=== PATIENT | male | born 1970 | race Asian ===

== ENCOUNTER 2024-02-18 11:01 | Observation (INO) | payer OTHER ==
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
[2024-02-18] MEDS: SODIUM CHLORIDE 0.9% 1,000 ML IV STA (12:08)
[2024-02-18] MEDS: METOCLOPRAMIDE 5 MG/ML 2 ML VIAL IVP STA (12:08)
[2024-02-18 12:10] LABS: Basophils % (A) 0 %; Eosinophils % (A) 1 %; HCT 42.5 % (39.0-53.0); Lymphocytes # (A) 1.1 k/uL (1.0-4.8); Lymphocytes % (A) 20 %; MCH 29.2 pg (25.0-35.0); MCHC 33.1 g/dL (31.0-37.0); MCV 88.2 fL (80.0-100.0); Mean Platelet Volume 6.8; Monocytes # (A) 0.2 k/uL (0-1.0); Monocytes % (A) 4 %; Neutrophils % (A) 73 %; Platelet Count 364 k/uL (150-450); RBC 4.81 m/uL (4.30-5.90); RDW 12.6 % (11.5-15.5); WBC 5.5 k/uL (3.8-10.6)
[2024-02-18] MEDS: KETOROLAC 15 MG/ML 1 ML VIAL IVP STA ×2 (12:11→14:25)
[2024-02-18] MEDS: diphenhydrAMINE 50 MG/ML 1 ML VIAL IVP STA (12:13)
[2024-02-18] MEDS: MECLIZINE 12.5 MG TAB PO STA ×2 (12:17→14:26)
[2024-02-18 12:20] LABS: ALT 21 U/L (4-49); AST 20 U/L (17-59); African American GFR (CKD) >90 (>60 ml/min/1.73 sqM); Albumin 4.3 g/dL (3.5-5.0); Alkaline Phosphatase 60 U/L (38-126); Anion Gap 4 mmol/L; Blood Urea Nitrogen 12 mg/dL (9-20); Carbon Dioxide 26 mmol/L (22-30); Chloride 109 mmol/L (98-107); Glucose 112 mg/dL (74-99); Non-African American GFR(CKD) >90 (>60 ml/min/1.73 sqM); Potassium 3.6 mmol/L (3.5-5.1); Sodium 139 mmol/L (137-145); Total Bilirubin 1.3 mg/dL (0.2-1.3); Total Protein 7.9 g/dL (6.3-8.2)
[2024-02-18 12:48] LABS: Glucose,Whole Blood 92 mg/dL (70-110)
--- NOTE | 2024-02-18 12:53 | CT ---
EXAMINATION TYPE: CT brain wo con CT DLP: 1204.4 mGycm, Automated exposure control for dose reduction was used. DATE OF EXAM: 02/18/2024 12:34 PM COMPARISON: None. CLINICAL INDICATION:Male, 53 years old with history of Headache with severe dizziness and visual troy ges, DIZZINESS, WEAKNESS AND AMS TECHNIQUE: Brain: Multiple axial CT images of the brain were obtained without IV contrast. . Coronal and sagitta l reformats reviewed. FINDINGS: Brain: Extra-axial spaces: No abnormal extra-axial fluid collections. Ventricular system: Within normal limits Cerebral parenchyma: No acute intraparenchymal hemorrhage or mass effect. The linares-white junction is well differentiated. Cerebellum: Unremarkable. Mass effect: No evidence of midline shift. Intracranial vasculature: unremarkable Soft tissues: Normal. Calvarium/osseous structures: No depressed skull fracture. Paranasal sinuses and mastoid air cells: Clear Visualized orbits: Orbital contents are intact. IMPRESSION: No acute intracranial process. [facility], , 02/18/2024 12:51 PM
[2024-02-18] MEDS: ONDANSETRON 4 MG/2 ML VIAL IVP STA (14:22)
--- NOTE | 2024-02-18 16:37 | CT ---
EXAMINATION TYPE: CODE STROKE: CTA head neck DATE OF EXAM: 02/18/2024 HISTORY: Severe headache, dizziness COMPARISON: None CT DLP: 503.9 mGycm. Automated Exposure Control for Dose Reduction was Utilized. TECHNIQUE: CTA scan of the head and neck is performed with IV Contrast, patient injected with 65ml m L of Isovue 370, axial images are obtained, coronal and sagittal reformatted images are reviewed. 3D reconstructed images are created on an independent workstation and reviewed. FINDINGS: The brachiocephalic origins are widely patent and no significant stenosis. There is no significant stenosis of the common or internal carotid arteries within the neck. There is no stenosis of the vertebral arteries. Intracranially, there is no stenosis, segmental occlusion, sizable aneurysm sac or vascular malformat ion. IMPRESSION:. No significant abnormality seen. NASCET criteria was used in interpretation of this exam? [facility], Workstation: [id number] 02/18/2024 4:34 PM
[2024-02-18] MEDS ORDERED: NALOXONE 0.4 MG/ML 1 ML VIAL IV PRN (17:35)
[2024-02-19] MEDS ORDERED: ONDANSETRON 4 MG/2 ML VIAL IVP PRN (05:20)
[2024-02-19] MEDS: KETOROLAC 15 MG/ML 1 ML VIAL IVP PRN (11:08)
[2024-02-19] MEDS: diazePAM 5 MG TAB PO SCH (17:52)
[2024-02-20] MEDS: amLODIPine 5 MG TAB PO SCH (09:02)
--- NOTE | 2024-02-20 13:39 | XR ---
EXAMINATION TYPE: XR chest 2V DATE OF EXAM: 02/20/2024 COMPARISON: NONE TECHNIQUE: PA and lateral views submitted. HISTORY: Hypertension FINDINGS: The lungs are clear and there is no pneumothorax, pleural effusion, or focal pneumonia. Heart size normal and no overt failure. Osseous structures demonstrate hypertrophic and degenerative changes of the spine. A nodular density in the right mid lung recommend short-term follow-up CT chest. Biapical pleural thickening. IMPRESSION: 1. No acute process. 2. There is a 1 cm nodular density in the right midlung. Recommend short-term follow-up CT chest. [facility], , 02/20/2024 1:37 PM
[2024-02-20] MEDS: MECLIZINE 25 MG TAB PO PRN (17:02)
--- NOTE | 2024-02-21 01:43 | PN ---
PROGRESS NOTE SUBJECTIVE: A 53-year-old I believe a white male, remains on hypertension medicines. We gave him Valium for dizziness, which worked in the emergency room for possible vertigo symptoms. Awaiting Neurology recommendations. Some of these could be due to his blood pressure being high. It is high on admission. OBJECTIVE: VITAL SIGNS: Temp 98.1, pulse 70s to 80s, respiratory rate 16 to 18, blood pressure 140s to 130s over 80s, O2 is 98% to 99% on room air. LABORATORY DATA: Labs essentially are normal. ASSESSMENT: Wait for further orders from the consults who are involved. Dr. Del Cid for leukocytosis. Possibly go home on Valium if his vertigo has improved and his blood pressure has improved. He had an angiography CT, which shows no stenosis, no abnormalities at all. Brain CT is normal. EKG, right ventricular conduction delay. Possibly send him home on vertigo medications and hypertension meds if he is stabilized. Prognosis guarded. MMODL / IJN: [id number] /
[2024-02-21 08:41] LABS: Basophils # (A) 0.03 X 10*3/uL (0.00-0.10); Basophils % (A) 0.5 %; Eosinophils # (A) 0.13 X 10*3/uL (0.04-0.35); Eosinophils % (A) 2.2 %; HCT 41.5 % (39.6-50.0); Lymphocytes # (A) 1.63 X 10*3/uL (0.90-5.00); Lymphocytes % (A) 27.8 %; MCH 29.3 pg (27.0-32.0); MCHC 33.7 g/dL (32.0-37.0); MCV 86.8 FL (80.0-97.0); Mean Platelet Volume 9.3 FL (9.5-12.2); Monocytes # (A) 0.48 X 10*3/uL (0.20-1.00); Monocytes % (A) 8.2 %; NRBC Per 100 WBC 0 X 10*3/uL (0.00-0.01); Neutrophils # (A) 3.59 X 10*3/uL (1.80-7.70); Neutrophils % (A) 61.1 %; Platelet Count 329 X 10*3/uL (140-440); RBC 4.78 X 10*6/uL (4.40-5.60); RDW 12.3 % (11.5-14.5); WBC 5.87 X 10*3/uL (4.50-10.00)
--- NOTE | 2024-02-21 08:46 | P.CONS ---
History of Present Illness - Reason for Consult Consult date: 02/20/24 Viral syndrome Requesting physician: Nasim Phillips - Chief Complaint Dizziness and vomiting x 2 days - History of Present Illness Patient is a 53-year-old male past medical history significant for depression deaf has been brought into the hospital concerning for dizziness and sensation of room spinning x 2 days apparently patient was complaining of a headache nausea vomiting difficulty focusing and generalized not feeling well and apparently the patient did have worsening of symptoms when he was at work around 9 AM for the patient has been brought into the hospital on arrival to the ER patient was afebrile and no fever have been recorded subsequently patient was not tachycardic hypotensive or hypoxic patient did have a normal white count of 5.5 creatinine has been normal electrolytes are normal liver enzymes are normal patient did have a CT of the brain no acute intracranial process patient did have a angiographic CT no significant normality seen patient has been admitted to the hospital consult placed for infectious disease concerning for viral syndrome that is very hard to get a history because of language barrier though when asked denies having any pain to the ear area or any drainage from the ear since admission to the hospital has reported by the nursing staff the patient seem to be doing well and no further episode of vomiting has been reported Review of Systems Positive point and negatives has been mentioned in the HPI, complete review of systems was performed and all other systems are negative Past Medical History Past Medical History: No Reported History History of Any Multi-Drug Resistant Organisms: None Reported Additional Past Surgical History / Comment(s): left knee replacement Past Anesthesia/Blood Transfusion Reactions: No Reported Reaction Past Psychological History: Depression Additional Psychological History / Comment(s): in the past not current Smoking Status: Never smoker Past Alcohol Use History: None Reported Past Drug Use History: None Reported Medications and Allergies Home Medications Medication Instructions Recorded Confirmed Type No Known Home Medications 02/18/24 02/18/24 History Allergies Allergy/AdvReac Type Severity Reaction Status Date / Time No Known Allergies Allergy Verified 02/18/24 17:17 Physical Exam Vitals: Vital Signs Temp Pulse Pulse Resp BP Pulse Ox 02/20/24 07:18 98.1 F 61 16 148/83 99 02/20/24 01:38 97.6 F 68 16 130/85 98 02/19/24 18:54 98.3 F 71 16 133/73 96 02/19/24 17:54 69 147/84 02/19/24 12:14 98.3 F 61 15 137/87 100 Intake and Output 02/19/24 02/20/24 02/20/24 22:59 06:59 14:59 Intake Total 420 Output Total 300 Balance -300 420 Intake: Oral 420 Output: Urine 300 Other: Voiding Method Urinal GENERAL DESCRIPTION: Middle-aged male lying in bed, no distress. No tachypnea or accessory muscle of respiration use. HEENT: Shows Pallor , no scleral icterus. Oral mucous membrane is dry. No pharyngeal erythema or thrush NECK: Trachea central, no thyromegaly. LUNGS: Unlabored breathing. Clear to auscultation anteriorly. No wheeze or crack le. HEART: S1, S2, regular rate and rhythm. No loud murmur ABDOMEN: Soft, no tenderness , guarding or rigidity, no organomegaly EXTREMITIES: No edema of feet. SKIN: No rash, no masses palpable. NEUROLOGICAL: The patient is awake, alert, mood and affect normal. Results CBC & Chem 7: 02/21/24 06:10 02/18/24 12:04 Assessment and Plan (1) Dizziness Current Visit: Yes Status: Acute Code(s): R42 - DIZZINESS AND GIDDINESS SNOMED Code(s): 416638134 (2) Headache Current Visit: Yes Status: Acute Code(s): R51.9 - HEADACHE, UNSPECIFIED SNOMED Code(s): 45996642 Plan: 1patient presented to hospital with dizziness headache and did have episode of vomiting questionably related to the middle ear issues clinically would doubt an infectious etiology as the patient not running any fever does not look toxic did have a normal white count 2patient benefit from ENT evaluation for more detailed examination of the ear and specific testing for labyrinthitis 3we will check his inflammatory markers 4no need for antibiotics or antiviral at this point We will follow on clinical condition and cultures to further adjust medication if needed Thank you for this consultation we will follow the patient along with you Dictation was produced using [employer] dictation software. please excuse any grammatical, word or spelling errors. Time with Patient: Greater than 30
[2024-02-21 09:19] LABS: ALT 15 U/L (10-49); AST 17 U/L (14-35); Albumin 3.8 g/dL (3.8-4.9); Albumin/Globulin Ratio 1.12 Ratio (1.60-3.17); Alkaline Phosphatase 65 U/L (41-126); Blood Urea Nitrogen 14.4 mg/dL (9.0-27.0); C Reactive Protein <0.30 mg/dL (0.00-0.80); Calcium 9.4 mg/dL (8.7-10.3); Carbon Dioxide 25.3 mmol/L (21.6-31.8); Chloride 106 mmol/L (96-109); Globulin 3.4 g/dL (1.6-3.3); Glucose 95 mg/dL (70-110); Potassium 3.6 mmol/L (3.5-5.5); Sodium 140 mmol/L (135-145); Total Protein 7.2 g/dL (6.2-8.2)
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
--- NOTE | 2024-02-21 16:00 | P.PN ---
Subjective Progress Note Date: 02/21/24 Principal diagnosis: Reason for follow-up is dizziness question of viral syndrome Patient is a 53-year-old male past medical history significant for depression deaf has been brought into the hospital concerning for dizziness and sensation of room spinning x 2 days before presenting to the hospital ID consult concern for possible viral syndrome. On today's evaluation that is 02/21/2024, Patient is afebrile this morning patient has been breathing comfortably still some dizziness no vomiting diarrhea or any other changes reported by the nursing staff. Patient white count is 5.87 creatinine 0.9 procalcitonin 0.03 CRP is less than 0.30 Objective - Vital Signs Vital signs: Vital Signs Temp 98.0 F 02/21/24 12:50 Pulse 67 02/21/24 12:50 Resp 14 02/21/24 12:50 BP 129/87 02/21/24 12:50 Pulse Ox 97 02/21/24 12:50 FiO2 Intake & Output 02/20/24 02/21/24 02/21/24 18:59 06:59 18:59 Output Total 700 Balance -700 Output: Urine 700 Other: Voiding Method Urinal Urinal Urinal # Voids 1 1 - Exam GENERAL DESCRIPTION: Middle-age male lying in bed in no distress RESPIRATORY SYSTEM: Unlabored breathing , decreased breath sounds at bases HEART: S1 S2 regular rate and rhythm , ABDOMEN: Soft , no tenderness EXTREMITIES: No edema feet - Labs CBC & Chem 7: 02/21/24 06:10 02/21/24 06:10 Labs: Abnormal Lab Results - Last 24 Hours (Table) 02/21/24 02/21/24 Range/Units 06:10 06:10 MPV 9.3 L (9.5-12.2) FL Globulin 3.4 H (1.6-3.3) g/dL Albumin/Globulin Ratio 1.12 L (1.60-3.17) Ratio Assessment and Plan (1) Dizziness Current Visit: Yes Status: Acute Code(s): R42 - DIZZINESS AND GIDDINESS SNOMED Code(s): 293474678 (2) Headache Current Visit: Yes Status: Acute Code(s): R51.9 - HEADACHE, UNSPECIFIED SNOMED Code(s): 30062277 Plan: 1patient presented to hospital with dizziness headache and did have episode of vomiting questionably related to the middle ear issues clinically would doubt an infectious etiology as the patient not running any fever does not look toxic did have a normal white count 2patient benefit from ENT evaluation for more detailed examination of the ear and specific testing for labyrinthitis/Mnire's disease 3patient did have normal inflammatory markers that would make infectious etio logy less likely recommended discontinue Rocephin neurology recommending steroids Dictation was produced using [employer] dictation software. please excuse any grammatical, word or spelling errors.
[2024-02-21] MEDS: methylPREDNISolone SOD SUCCI 40 MG/ML 1 ML VIAL IV SCH (16:18)
--- NOTE | 2024-02-21 16:50 | MR ---
EXAMINATION TYPE: MR iac wo/w con DATE OF EXAM: 02/21/2024 2:47 PM CLINICAL INDICATION: Male, 53 years old with history of Chronic recurrent vertigo;, Chronic recurrent vertigo COMPARISON: 02/18/2024 TECHNIQUE: Multi planar, multi sequence imaging was performed through the brain. Specialized thin s equences were obtained through the internal auditory canals. Pre-and post gadolinium sequences were obtained. MR contrast: IV Contrast: 7.5 cc Gadavist FINDINGS: The linares-white junctions, ventricular system, and cisterns appear unremarkable.. Midline structures show no abnormality. Diffusion-weighted imaging shows no evidence of restricted diffusion. The suscep tibility weighted images do not reveal any evidence for micro-hemorrhage. The bone marrow signal is within normal limits. Paranasal sinuses and mastoid air cells: Mild scattered paranasal sinus disease. Visualized orbits: Orbital contents are intact. After administration of gadolinium, no abnormal enhancement is seen. The internal auditory canal sequences demonstrate no significant irregularity. The 7th cranial nerve s, 8 cranial nerves, and cerebellar pontine angles appear unremarkable. After the administration ju olinium, no abnormal enhancement is seen within the internal auditory canals. Vascular loop: None. IMPRESSION: 1. No evidence of intracranial mass nor acute/subacute CVA. 2. No evidence of internal auditory canal abnormality. [facility], , 02/21/2024 4:48 PM
[2024-02-21] MEDS: FOLIC ACID 1 MG TAB PO SCH (17:38)
[2024-02-21] MEDS: hydroCHLOROthiazide 12.5 MG CAP PO SCH (17:39)
[2024-02-21] MEDS: CYANOCOBALAMIN 1,000 MCG/ML 1 ML VIAL IM ONE (17:39)
--- NOTE | 2024-02-22 03:58 | PN ---
PROGRESS NOTE SUBJECTIVE: A 53-year-old [place] man with otitis media, vertigo improved with Valium and antibiotics. MRI is negative. He is sitting comfortably in bed. frontal headache. OBJECTIVE: CARDIOVASCULAR: S1 and S2. LUNGS: Clear. Unable to speak Chinese. ASSESSMENT: Recalcitrant dizziness, right otitis media, vertigo. MRI is negative. CTA of the neck and head is negative. Possible discharge home in the morning. MMODL / IJN: [id number] /
[2024-02-22] MEDS: CYANOCOBALAMIN 500 MCG TAB PO SCH (09:09)
--- NOTE | 2024-02-22 11:43 | P.PN ---
Subjective Progress Note Date: 02/21/24 Patient was seen for a follow-up. data integration developer was used over the screen, #[id number]. Patient states His symptoms have improved, about 4/10. Patient mentions that he was seen by ENT specialist long time ago, and was told that he has imbalance in the water in the ear and he believes it is the right ear. He still feels woozy, but overall symptoms have improved. He still is emotional, crying. Meclizine is helping slightly. Objective - Vital Signs Vital signs: Vital Signs Temp 97.6 F 02/22/24 07:41 Pulse 87 02/22/24 07:41 Resp 20 02/22/24 07:41 BP 104/68 02/22/24 07:41 Pulse Ox 92 L 02/22/24 07:41 FiO2 Intake & Output 02/21/24 02/22/24 02/22/24 18:59 06:59 18:59 Intake Total 540 200 Output Total 700 Balance -160 200 Intake: Intake, IV Titration 0 Amount cefTRIAXone 1 gm In 0 Sodium Chloride 0.9% 50 ml @ 100 mls/hr IVPB Q24HR [facility] Rx#:[id number] Oral 540 200 Output: Urine 700 Other: Voiding Method Urinal Urinal Urinal # Voids 1 1 - Exam Change. Mentation normal. - Labs CBC & Chem 7: 02/21/24 06:10 02/21/24 06:10 Assessment and Plan Assessment: * Chronic, recurrent episodes of vertigo. Patient has history of vertigo since age 16, that occurs every 3 to 6 months, lasting for 1-1/2 weeks. He was symptom free for 6 years, but now symptoms have relapsed since 02/17/2024. Suspect peripheral vestibular dysfunction resulting in recurrent episodes of vertigo. Rule out Mnire's disease. * Hearing impaired since age 4, uses sign language Plan: * MRI of the internal auditory canal with and without contrast showed no evidence of intracranial mass or acute/subacute CVA. No evidence of internal auditory canal abnormality. I personally reviewed MRI agree with the findings. * B12 399, folate 7.0, TSH 1.21, RPR nonreactive. Patient's B12 and folate are borderline we will start replacement. Patient given vitamin B12 injection 1000 mcg x 1, followed by 1000 mcg orally daily and folic acid 1 mg. * Meclizine, as needed for vertigo. * Start HCTZ 12.5 mg once daily for peripheral vascular dysfunction. Recommend low-salt diet. * Continue Zofran as needed for nausea vomiting. * Patient definitely needs ENT consultation to evaluate for peripheral vestibular dysfunction. However ENT recommending patient to follow-up in their office as outpatient. * Patient started on Solu-Medrol 40 mg IV every 8 hours, agree. * Neurologically clear, if the symptoms improved with above plans. Patient to follow-up with ENT outpatient.
[2024-02-22 13:31] VITALS: BP 145/90; PULSE 108; RESP 16; TEMP 98.7
--- NOTE | 2024-02-23 13:16 | P.PN ---
Subjective Progress Note Date: 02/22/24 Patient was seen for a follow-up. healthcare interpreter was used over the screen. Patient states his headache has gone away. His dizziness is about 2- 4/10. Overall improved. Patient appears depressed, frequently becomes emotional. Patient mentions that he was seen by ENT specialist long time ago, and was told that he has imbalance in the water in the ear and he believes it is the right ear. He still feels woozy, but overall symptoms have improved. He still is emotional, crying. Meclizine is helping slightly. Objective - Vital Signs Vital signs: Vital Signs Temp 98.7 F 02/22/24 13:29 Pulse 108 H 02/22/24 13:29 Resp 16 02/22/24 13:29 BP 145/90 02/22/24 13:29 Pulse Ox 95 02/22/24 13:29 FiO2 Intake & Output 02/22/24 02/23/24 02/23/24 18:59 06:59 18:59 Other: Voiding Method Urinal # Voids 1 - Exam Change. Mentation normal. - Labs CBC & Chem 7: 02/21/24 06:10 02/21/24 06:10 Assessment and Plan Assessment: * Chronic, recurrent episodes of vertigo. Patient has history of vertigo since age 16, that occurs every 3 to 6 months, lasting for 1-1/2 weeks. He was symptom free for 6 years, but now symptoms have relapsed since 02/17/2024. Suspect peripheral vestibular dysfunction resulting in recurrent episodes of vertigo. Rule out Mnire's disease. * Hearing impaired since age 4, uses sign language Plan: * MRI of the internal auditory canal with and without contrast showed no evidence of intracranial mass or acute/subacute CVA. No evidence of internal auditory canal abnormality. I personally reviewed MRI agree with the findings. * B12 399, folate 7.0, TSH 1.21, RPR nonreactive. Patient's B12 and folate are borderline we will start replacement. Patient given vitamin B12 injection 1000 mcg x 1, followed by 1000 mcg orally daily and folic acid 1 mg. * Meclizine, as needed for vertigo. * Start HCTZ 12.5 mg once daily for peripheral vascular dysfunction. Recommend low-salt diet. * Continue Zofran as needed for nausea vomiting. * Patient definitely needs ENT consultation to evaluate for peripheral vesti bular dysfunction. However ENT recommending patient to follow-up in their office as outpatient. * Patient started on Solu-Medrol 40 mg IV every 8 hours, agree. * Neurologically clear for discharge. Patient to follow-up with ENT outpatient.
--- NOTE | 2024-02-26 20:31 | P.DS ---
Providers Date of admission: 02/18/24 17:37 Attending physician: Nasim Phillips Consults: 02/19/24 16:33 Consult Physician Routine Consulting Provider: Britney Del Cid Consult Reason/Comments: viral syndrome Do you want consulting provider notified?: Yes 02/20/24 11:20 Consult Physician Routine Consulting Provider: Juan Guerra Consult Reason/Comments: Vertigo Do you want consulting provider notified?: Yes 02/20/24 11:23 Consult Physician Routine Consulting Provider: Mer Mart Consult Reason/Comments: dizziness Do you want consulting provider notified?: Yes Primary care physician: Stated None Hospital Course: Final Diagnosis History of depression Deaf Vertigo rule out labyrinthitis ENT follow-up on discharge Hypertension Discharge Disposition Patient stable for discharge home he is advised to not drive until dizziness has resolved he is to continue a low-salt diet follow-up with ear nose and throat doctor on discharge. Patient will continue on the Antivert meclizine as needed 3 times a day for dizziness as well as oral prednisone. Patient is hydrochlorothiazide amlodipine for blood pressure control. Hospital Course This is a 53-year-old male comes in for dizziness and vertigo type symptoms. Patient was feeling headache nausea vomiting difficulty focusing and room spinning. He is deaf and uses sign language which all communication was used via press operator assistant foreign language instructor over the screen. He has a significant other at the bedside. Apparently this has happened in the past. Concern for middle ear infection. The patient white blood cell count has remained normal and he has not having any fever. Patient was started on Valium as well as meclizine. Patient had a CT angiography which shows no stenosis no abnormalities at all his brain CT has been normal. EKG reveals a right ventricular conduction delay. He had an MRI orbit which reveals no evidence of intracranial mass or acute subacute CVA there is no evidence of internal auditory canal abnormality bilaterally. He did seem to respond to steroids as well as the meclizine and we will continue these on discharge until patient can get into see ENT in the office. Please see medication reconciliation for a list of current medications. Thank you for allowing us to participate in the care of this patient. The impression and plan of care has been dictated by Yamini Pinzon, Nurse Practitioner as directed. Dr. Roshan MD I have performed a history and physical examination and medical decision making of this patient, discussed the same with the dictator, and agree with the dictators assessment and plan as written, documented as a scribe. Based on total visit time, I have performed more than 50% of this visit. Patient Condition at Discharge: Fair Plan - Discharge Summary Discharge Rx Participant: No New Discharge Prescriptions: New Folic Acid 1 mg PO DAILY #30 tab hydroCHLOROthiazide [Hydrodiuril] 12.5 mg PO DAILY #30 cap Cyanocobalamin [Vitamin B-12] 1,000 mcg PO DAILY #30 tab Meclizine [Antivert] 25 mg PO TID PRN #30 tab PRN Reason: Vertigo amLODIPine [Norvasc] 5 mg PO DAILY #30 tab predniSONE 0 mg PO DIRECTED 12 Days #30 tab Pantoprazole [Protonix] 40 mg PO DAILY #30 tab Discharge Medication List Cyanocobalamin [Vitamin B-12] 1,000 mcg PO DAILY #30 tab 02/22/24 [Rx] Folic Acid 1 mg PO DAILY #30 tab 02/22/24 [Rx] Meclizine [Antivert] 25 mg PO TID PRN #30 tab 02/22/24 [Rx] Pantoprazole [Protonix] 40 mg PO DAILY #30 tab 02/22/24 [Rx] amLODIPine [Norvasc] 5 mg PO DAILY #30 tab 02/22/24 [Rx] hydroCHLOROthiazide [Hydrodiuril] 12.5 mg PO DAILY #30 cap 02/22/24 [Rx] predniSONE 0 mg PO DIRECTED 12 Days #30 tab 02/22/24 [Rx] Follow up Appointment(s)/Referral(s): [facility] [NON-STAFF] - 1-2 Days (please call and schedule appointment-office is closed) Juan Guerra MD [STAFF PHYSICIAN] - 1 Week (Ear nose throat specialist please call and make appointment-office is closed) Patient Instructions/Handouts: Hydrochlorothiazide (By mouth), Prednisone (By mouth), Meclizine (By mouth), Folic Acid (By mouth), Amlodipine (By mouth), Pantoprazole (By mouth), Folic Acid/Cyanocobalamin (By mouth), Meniere Disease (DC), Low-Sodium Diet (DC), Dizziness (ED) Activity/Diet/Wound Care/Special Instructions: No driving until dizziness has resolved!! Continue a low salt diet Continue the antivert (Meclizine) as needed three times a day for dizziness Follow up with Ear Nose Throat doctor on discharge. Discharge Disposition: HOME SELF-CARE
--- NOTE | 2024-02-29 15:13 | P.PN ---
Subjective Progress Note Date: 02/22/24 Principal diagnosis: Reason for follow-up is dizziness question of viral syndrome Patient is a 53-year-old male past medical history significant for depression deaf has been brought into the hospital concerning for dizziness and sensation of room spinning x 2 days before presenting to the hospital ID consult concern for possible viral syndrome. On today's evaluation that is 02/22/2024, the patient remains to be afebrile, the patient is breathing comfortably on room air, the patient symptom of dizziness has improved denies pain to the ER or any drainage no chest pain shortness of breath or cough. Patient did not have a lab draw today procalcitonin had been 0.03 white count is normal he did have MRI of the orbit face and neck IAC no evidence for intracranial mass no acute or subacute CVA no evidence of internal auditory canal abnormality Objective - Vital Signs Vital signs: Vital Signs Temp 98.7 F 02/22/24 13:29 Pulse 108 H 02/22/24 13:29 Resp 16 02/22/24 13:29 BP 145/90 02/22/24 13:29 Pulse Ox 95 02/22/24 13:29 FiO2 Intake & Output 02/21/24 02/22/24 02/22/24 18:59 06:59 18:59 Intake Total 540 200 Output Total 700 Balance -160 200 Intake: Intake, IV Titration 0 Amount cefTRIAXone 1 gm In 0 Sodium Chloride 0.9% 50 ml @ 100 mls/hr IVPB Q24HR [facility] Rx#:[id number] Oral 540 200 Output: Urine 700 Other: Voiding Method Urinal Urinal Urinal # Voids 1 1 - Exam GENERAL DESCRIPTION: Middle-age male lying in bed in no distress RESPIRATORY SYSTEM: Unlabored breathing , decreased breath sounds at bases HEART: S1 S2 regular rate and rhythm , ABDOMEN: Soft , no tenderness EXTREMITIES: No edema feet - Labs CBC & Chem 7: 02/21/24 06:10 02/21/24 06:10 Assessment and Plan (1) Dizziness Status: Acute Code(s): R42 - DIZZINESS AND GIDDINESS SNOMED Code(s): 466667533 (2) Headache Status: Acute Code(s): R51.9 - HEADACHE, UNSPECIFIED SNOMED Code(s): 78787558 Plan: 1patient presented to hospital with dizziness headache and did have episode of vomiting questionably related to the middle ear issues clinically would doubt an infectious etiology as the patient not running any fever does not look toxic did have a normal white count 2patient benefit from ENT evaluation for more detailed examination of the ear and specific testing for labyrinthitis/Mnire's disease 3patient did have normal inflammatory markers and no abnormality seen on the MRI of the internal auditory canal or intracranial abnormality patient had responded to the steroids and meclizine to continue daily follow-up with the ENT in outpatient setting no need for any antibiotic or antiviral on discharge Dictation was produced using [employer] dictation software. please excuse any gram matical, word or spelling errors. Time with Patient: Less than 30
== END 2024-02-22 18:12 | disposition home or self-care (01) ==
LOC: EC 11:01 → 6NMEDSUR 17:37 → 5NMEDONC 02-19 05:58
PROVIDERS: ADMIT Family Medicine; ATTEND Family Medicine
DX: R42 Dizziness and giddiness (principal); R51.9 Headache, unspecified; H66.91 Otitis media, unspecified, right ear; H91.90 Unspecified hearing loss, unspecified ear; F32.A Depression, unspecified; I10 Essential (primary) hypertension
CPT/HCPCS: 96376 ×4; 96365; 96366; 96372; 96375 ×2; 99285; 36415; 93005; 80053 ×2; 84443; 82607; 82746; 85025 ×2; 86140; 86780; 84145; 71046; 70496; 70450; 70498; 70553; G0378 ×6; J1200; J3420; J2765; J3360; J2405; J0696 ×2; J1885 ×3; Q9967; A9585; J2919 ×2